=== PATIENT | female | born 1965 | race Caucasian/White ===

== ENCOUNTER → 2017-10-11 | Outpatient (CLI) | payer OTHER ==
[~2017-10-11] MED LIST: ALBU3IS INH; ALBU90OI6 INH; ASPI81CH PO; Advair Hfa 230-12 GM; Cipro500 MG PO; DOCU100 PO; GLIP10 PO; Glucophage1000 MG PO; HYDR1TAB94 PO; NAPR220 PO; PRAV20 PO; Tylenol With C1 EACH PO
[2017-10-11 18:40] LABS: Candida species (DNA Probe) Positive (NEGATIVE); G. vaginalis (DNA Probe) Positive (NEGATIVE)
[2017-10-15 08:03] LABS: T. vaginalis (DNA Probe) Negative (NEGATIVE)
== END | disposition home or self-care (01) ==
LOC: LAB 12:00
PROVIDERS: Nurse Practitioner Family
DX: Z11.3 Encounter for screening for infections with a predominantly sexual mode of transmission (principal); R10.2 Pelvic and perineal pain
CPT/HCPCS: 87480; 87510; 87660

== ENCOUNTER → 2019-01-21 | Outpatient (CLI) | payer BC ==
[2019-01-23 14:07] LABS: HPV 16 Negative (Negative); HPV 18 Negative (Negative); HPV OTHER HR TYPES Negative (Negative)
== END | disposition home or self-care (01) ==
LOC: LAB 20:08 → LAB SHORT 20:08
PROVIDERS: Obstetrics & Gynecology Gynecology
DX: Z12.72 Encounter for screening for malignant neoplasm of vagina (principal)
CPT/HCPCS: 87624; G0123